=== PATIENT | male | born 1940 | race Caucasian/White ===

== ENCOUNTER → 2018-01-26 | Outpatient (CLI) | payer MEDICARE | END | disposition home or self-care (01) | LOC: CDC 12:04 | DX: Z01.810 Encounter for preprocedural cardiovascular examination (principal); I44.0 Atrioventricular block, first degree | CPT/HCPCS: 93000 ==

== ENCOUNTER 2018-02-05 06:20 | Day surgery (SDC) | payer OTHER, MEDICARE ==
[~2018-02-05] VITALS: Ht 180.3 cm; Wt 88.5 kg
[~2018-02-05 06:20] MED LIST: AVAPRO300 MG PO; LO-DOSE ASPIRIN81 M1 PO; METFORMIN HCL500 M4 PO; NORVASC5 MG PO
[2018-02-05 07:02] VITALS: BP 184/79
[2018-02-05 10:28] VITALS: BP 144/70
[2018-02-05 11:28] VITALS: BP 145/79
== END 2018-02-05 11:28 | disposition home or self-care (01) ==
LOC: SDC 06:20
PROVIDERS: Urology
PROC: 0T778DZ Dilation of Left Ureter with Intraluminal Device, Via Natural or Artificial Opening Endoscopic (ICD-10-PCS; principal; 2018-02-05)
PROC: BT1F1ZZ Fluoroscopy of Left Kidney, Ureter and Bladder using Low Osmolar Contrast (ICD-10-PCS; principal; 2018-02-05)
PROC: 0TF78ZZ Fragmentation in Left Ureter, Via Natural or Artificial Opening Endoscopic (ICD-10-PCS; principal; 2018-02-05)
DX: N20.1 Calculus of ureter (principal); N40.1 Benign prostatic hyperplasia with lower urinary tract symptoms; R35.0 Frequency of micturition; R39.15 Urgency of urination; I10 Essential (primary) hypertension; E78.00 Pure hypercholesterolemia, unspecified; E11.9 Type 2 diabetes mellitus without complications; C18.9 Malignant neoplasm of colon, unspecified; Z79.84 Long term (current) use of oral hypoglycemic drugs; Z79.82 Long term (current) use of aspirin
CPT/HCPCS: 74420; 82365 90; 82948; C1769; C2625; J0690; J1100; J2405; J3010

== ENCOUNTER 2018-02-06 06:59 | Emergency (ER) | payer OTHER, MEDICARE ==
[~2018-02-06] VITALS: Ht 180.3 cm; Wt 90.8 kg
[2018-02-06 07:49] LABS: BILIRUBIN NEGATIVE; BLOOD LARGE; COLOR YELLOW ((YELLOW)); GLUCOSE (STRIP) NEGATIVE; KETONES 5; LEUKOCYTES NEGATIVE; NITRITE NEGATIVE; PROTEIN (STRIP) 100; SPECIFIC GRAVITY 1.016 (1.000-1.030); UROBILINOGEN 0.2 MG/DL (0.2-1.0)
[2018-02-06 07:50] LABS: APPEARANCE CLOUDY ((CLEAR))
[2018-02-06 08:11] LABS: CHLORIDE 97 MEQ/L (99-109); POTASSIUM 3.8 MEQ/L (3.7-5.4); SODIUM 134 MEQ/L (136-147)
[2018-02-06 08:16] LABS: CREATININE 0.8 MG/DL (0.6-1.3); GFR ESTIMATE (CALCULATED) > 59 mL/min/ (58.99-99999); GLUCOSE 146 mg/dL (70-99); UREA NITROGEN (BUN) 12 mg/dL (9-23)
[2018-02-06 08:26] LABS: BACTERIA NONE SEEN /HPF; EPITHELIAL CELLS RARE /HPF; HYALINE CASTS 0-5 /LPF; MUCUS NONE SEEN /LPF; RED BLOOD CELLS TNTC /HPF (0-5); UCUL ADDED? YES; WHITE BLOOD CELLS 0-5 /HPF (0-5)
[2018-02-06 11:06] VITALS: BP 104/62
== END 2018-02-06 11:08 | disposition home or self-care (01) ==
LOC: EME 06:59
PROVIDERS: Emergency Medicine
DX: N20.1 Calculus of ureter (principal); K59.00 Constipation, unspecified; Z79.82 Long term (current) use of aspirin; Z79.84 Long term (current) use of oral hypoglycemic drugs; Z96.0 Presence of urogenital implants; Z98.890 Other specified postprocedural states; Z86.718 Personal history of other venous thrombosis and embolism; Z85.038 Personal history of other malignant neoplasm of large intestine
CPT/HCPCS: 80048; 81003; 87086; 99281; 99285; J2270; J2405; J7040